=== PATIENT | female | born 1960 | race Caucasian/White ===

== ENCOUNTER 2021-02-08 19:01 | Emergency (ER) | payer OTHER, SELFPAY ==
[2021-02-08 19:30] LABS: #Eosinphils 0.1 thou/uL (0.0-0.7); #Lymphocytes 1.1 thou/uL (1.20-3.40); #Monocytes 0.8 thou/uL (0.11-0.59); #Neutrophils 7.4 thou/uL (1.40-6.50); %Basophils 0.5 % (0.0-1.0); %Eosinophils 1.6 % (0.0-10.0); %Lymphocytes 11.7 % (21.0-51.0); %Monocytes 8.6 % (0.0-10.0); %Neutrophils 77.7 % (42.0-75.0); Hemoglobin 11.5 g/dL (12.0-16.0); Mean Corpuscular Hemoglobin 31.1 pg (27.0-31.0); Mean Corpuscular Volume 91.4 fL (78.0-98.0); Mean Platelet Volume 8.1 fL (7.4-10.4); Platelet Count 200 thou/uL (130-400); RBC Distribution Width 11.5 % (11.5-14.5); Red Blood Cell (RBC) Count 3.72 mill/uL (4.20-5.40); White Blood Cell (WBC) Count 9.5 thou/uL (4.8-10.8)
[2021-02-08 19:44] LABS: ALT (SGPT) Less than 7 U/L (8-55); AST (SGOT) 13 U/L (5-34); Albumin 3.8 g/dL (3.4-4.8); Alkaline Phosphatase 51 U/L (40-110); Anion Gap 11 mmol/L (10-20); BUN (Urea Nitrogen) 14 mg/dL (9.8-20.1); Bilirubin, Total 0.3 mg/dL (0.2-1.2); CK (CPK) 279 U/L (29-168); Calc. Creatinine Clearance 0 mL/min (70-130); Calcium 8.7 mg/dL (7.8-10.44); Carbon Dioxide 27 mmol/L (23-31); Chloride 103 mmol/L (98-107); Globulin 1.9 g/dL (2.4-3.5); Glucose 93 mg/dL (80-115); Potassium 3.7 mmol/L (3.5-5.1); Protein, Total 5.7 g/dL (5.8-8.1); Sodium 137 mmol/L (136-145)
[2021-02-08 20:52] LABS: Bacteria/HPF None Seen HPF (None Seen); Bilirubin Negative (Negative); Blood, Urine Negative (Negative); Clarity Clear (Clear); Glucose, Urine (Dipstick) Normal (Negative); Ketone, Urine Trace mg/dL (Negative); Leukocyte 25 Leu/uL (Negative); Nitrite Negative (Negative); Protein, Urine (Dipstick) Negative (Neg-Trace); RBC/HPF 0-3 HPF (0-3); Specific Gravity, Urine 1.014 (1.002-1.036); Squamous Epithelial None Seen HPF (0-3); Urobilinogen Normal mg/dL (Less than 2)
== END 2021-02-08 21:47 | disposition home or self-care (01) ==
LOC: ERS 19:01
DX: S70.02XA Contusion of left hip, initial encounter (principal); E78.5 Hyperlipidemia, unspecified; E78.00 Pure hypercholesterolemia, unspecified; W01.0XXA Fall on same level from slipping, tripping and stumbling without subsequent striking against object, initial encounter
CPT/HCPCS: 36415; 70450; 80053; 81003; 81015; 82550; 83605; 84484; 85025; 87086; 93005

== ENCOUNTER 2022-03-11 18:20 | Inpatient (IN) | payer MEDICARE, SELFPAY ==
[2022-03-11 19:36] LABS: Bacteria/HPF 3+ HPF (None Seen); Bilirubin Negative (Negative); Blood, Urine 3+ (Negative); Clarity Extra Turbid (Clear); Glucose, Urine (Dipstick) Normal (Negative); Ketone, Urine Negative (Negative); Leukocyte 500 Leu/uL (Negative); Nitrite Negative (Negative); Protein, Urine (Dipstick) 100 mg/dL (Neg-Trace); Specific Gravity, Urine 1.014 (1.002-1.036); Squamous Epithelial None Seen HPF (0-3); Urobilinogen Normal mg/dL (Less than 2); WBC/HPF Greater than 50 HPF (0-3); pH, Urine 5.5 (5.0-9.0)
[2022-03-11 19:59] LABS: #Basophils 0.1 thou/uL (0.0-0.2); #Eosinphils 0.1 thou/uL (0.0-0.7); #Monocytes 0.7 thou/uL (0.11-0.59); #Neutrophils 8.6 thou/uL (1.40-6.50); %Basophils 0.6 % (0.0-1.0); %Eosinophils 0.6 % (0.0-10.0); %Lymphocytes 9.4 % (21.0-51.0); %Monocytes 6.9 % (0.0-10.0); %Neutrophils 82.5 % (42.0-75.0); Hemoglobin 12.1 g/dL (12.0-16.0); Mean Corpuscular Hemoglobin 29.5 pg (27.0-31.0); Mean Corpuscular Volume 89.3 fl (78.0-98.0); Mean Platelet Volume 8.8 fL (7.4-10.4); Platelet Count 196 10x3/uL (130-400); RBC Distribution Width 11.8 % (11.5-14.5); Red Blood Cell (RBC) Count 4.09 mill/uL (4.20-5.40); White Blood Cell (WBC) Count 10.4 10x3/uL (4.8-10.8)
[2022-03-11 20:21] LABS: ALT (SGPT) Less than 7 U/L (8-55); AST (SGOT) 9 U/L (5-34); Albumin 4.2 g/dL (3.4-4.8); Alkaline Phosphatase 49 U/L (40-110); Anion Gap 10 mmol/L (10-20); BUN (Urea Nitrogen) 17 mg/dL (9.8-20.1); Bilirubin, Total 0.4 mg/dL (0.2-1.2); Calc. Creatinine Clearance 0 mL/min (70-130); Carbon Dioxide 27 mmol/L (23-31); Chloride 103 mmol/L (98-107); Estimated GFR 98; Globulin 2.3 g/dL (2.4-3.5); Glucose 85 mg/dL (80-115); Potassium 3.9 mmol/L (3.5-5.1); Protein, Total 6.5 g/dL (5.8-8.1); Sodium 136 mmol/L (136-145)
[2022-03-11] MEDS ORDERED: cefTRIAXone\\ROCEPHIN 1 GM VIAL ONE (21:53)
[2022-03-11] MEDS ORDERED: HYDROcodone/Acetaminophen 5/325 mg Tablet PO PRN (22:46)
[2022-03-11] MEDS ORDERED: Ondansetron ODT 4 MG TAB PO PRN (22:46)
[2022-03-11] MEDS ORDERED: Acetaminophen 325 MG TAB PO PRN (22:46)
[2022-03-11] MEDS ORDERED: Ondansetron PF 4 MG/2 ML Vial IVP PRN (22:46)
[2022-03-11] MEDS ORDERED: Phenazopyridine HCl 100 MG TAB PO SCH (23:30)
[2022-03-12] VITALS: BMI 21.9
[2022-03-12] MEDS: Phenazopyridine HCl 100 MG TAB PO SCH ×4 (00:31→17:55)
[2022-03-12] MEDS ORDERED: Carbidopa/Levodopa 25-100 mg Tablet PO PRN (00:48)
[2022-03-12] MEDS: Baclofen 10 MG TAB PO SCH ×4 (06:07→23:35)
[2022-03-12] MEDS: valACYclovir 500 MG TAB PO SCH (08:39)
[2022-03-12] MEDS: Ezetimibe 10 MG TAB PO SCH (08:39)
[2022-03-12] MEDS: cefTRIAXone\\ROCEPHIN 2 GM in Sodium Chloride 0.9% 100 ML IVPB SCH (08:40)
[2022-03-12] MEDS: Simvastatin 10 MG TAB PO SCH (08:41)
[2022-03-12 08:55] LABS: #Eosinphils 0.1 thou/uL (0.0-0.7); #Monocytes 0.5 thou/uL (0.11-0.59); #Neutrophils 3.7 thou/uL (1.40-6.50); %Basophils 0.8 % (0.0-1.0); %Eosinophils 2.5 % (0.0-10.0); %Lymphocytes 19.2 % (21.0-51.0); %Monocytes 8.5 % (0.0-10.0); Hemoglobin 11.4 g/dL (12.0-16.0); Mean Corpuscular Hemoglobin 29.8 pg (27.0-31.0); Mean Corpuscular Volume 90.3 fl (78.0-98.0); Mean Platelet Volume 8.8 fL (7.4-10.4); Platelet Count 168 10x3/uL (130-400); RBC Distribution Width 11.8 % (11.5-14.5); Red Blood Cell (RBC) Count 3.84 mill/uL (4.20-5.40); White Blood Cell (WBC) Count 5.3 10x3/uL (4.8-10.8)
[2022-03-12] MEDS ORDERED: Rasagiline Mesylate 1 MG Tab PO SCH (09:00)
[2022-03-12 09:11] LABS: Anion Gap 10 mmol/L (10-20); BUN (Urea Nitrogen) 15 mg/dL (9.8-20.1); Calc. Creatinine Clearance 81 mL/min (70-130); Calcium 8.6 mg/dL (7.8-10.44); Carbon Dioxide 29 mmol/L (23-31); Chloride 103 mmol/L (98-107); Estimated GFR 99; Glucose 111 mg/dL (80-115); Potassium 3.5 mmol/L (3.5-5.1); Sodium 138 mmol/L (136-145)
[2022-03-13] MEDS: Baclofen 10 MG TAB PO SCH ×4 (05:08→23:33)
[2022-03-13 06:03] LABS: #Eosinphils 0.2 thou/uL (0.0-0.7); #Lymphocytes 1.2 thou/uL (1.20-3.40); #Monocytes 0.5 thou/uL (0.11-0.59); #Neutrophils 3.5 thou/uL (1.40-6.50); %Basophils 0.3 % (0.0-1.0); %Eosinophils 3.1 % (0.0-10.0); %Lymphocytes 23.1 % (21.0-51.0); %Monocytes 8.4 % (0.0-10.0); %Neutrophils 65.1 % (42.0-75.0); Hemoglobin 11.9 g/dL (12.0-16.0); Mean Corpuscular HGB CONC 33.5 g/dL (32.0-36.0); Mean Corpuscular Hemoglobin 30.2 pg (27.0-31.0); Mean Corpuscular Volume 90.4 fl (78.0-98.0); Platelet Count 158 10x3/uL (130-400); RBC Distribution Width 11.9 % (11.5-14.5); Red Blood Cell (RBC) Count 3.95 mill/uL (4.20-5.40); White Blood Cell (WBC) Count 5.4 10x3/uL (4.8-10.8)
[2022-03-13 06:26] LABS: Anion Gap 9 mmol/L (10-20); BUN (Urea Nitrogen) 17 mg/dL (9.8-20.1); Calc. Creatinine Clearance 89 mL/min (70-130); Carbon Dioxide 30 mmol/L (23-31); Chloride 104 mmol/L (98-107); Potassium 4.3 mmol/L (3.5-5.1); Sodium 139 mmol/L (136-145)
[2022-03-13 06:27] LABS: Calcium 8.9 mg/dL (7.8-10.44); Estimated GFR 101; Glucose 92 mg/dL (80-115)
[2022-03-13] MEDS: Phenazopyridine HCl 100 MG TAB PO SCH ×3 (08:25→18:12)
[2022-03-13] MEDS: Ezetimibe 10 MG TAB PO SCH (08:25)
[2022-03-13] MEDS: cefTRIAXone\\ROCEPHIN 2 GM in Sodium Chloride 0.9% 100 ML IVPB SCH (08:25)
[2022-03-13] MEDS: Simvastatin 10 MG TAB PO SCH (08:31)
[2022-03-13] MEDS: valACYclovir 500 MG TAB PO SCH (08:31)
[2022-03-13] MEDS ORDERED: Lorazepam 2 MG/ML VIAL SLOW IVP SCH (15:45)
[2022-03-14] MEDS: Baclofen 10 MG TAB PO SCH ×4 (05:34→23:28)
[2022-03-14 06:38] LABS: #Basophils 0.1 thou/uL (0.0-0.2); #Eosinphils 0.1 thou/uL (0.0-0.7); #Lymphocytes 1.2 thou/uL (1.20-3.40); #Monocytes 0.5 thou/uL (0.11-0.59); #Neutrophils 3.3 thou/uL (1.40-6.50); %Eosinophils 2.7 % (0.0-10.0); %Lymphocytes 22.5 % (21.0-51.0); %Monocytes 8.7 % (0.0-10.0); %Neutrophils 65.1 % (42.0-75.0); Mean Corpuscular Hemoglobin 29.8 pg (27.0-31.0); Mean Corpuscular Volume 90.4 fl (78.0-98.0); Mean Platelet Volume 8.9 fL (7.4-10.4); Platelet Count 179 10x3/uL (130-400); RBC Distribution Width 11.8 % (11.5-14.5); Red Blood Cell (RBC) Count 4.02 mill/uL (4.20-5.40); White Blood Cell (WBC) Count 5.1 10x3/uL (4.8-10.8)
[2022-03-14 07:04] LABS: Anion Gap 10 mmol/L (10-20); BUN (Urea Nitrogen) 18 mg/dL (9.8-20.1); Calc. Creatinine Clearance 85 mL/min (70-130); Carbon Dioxide 28 mmol/L (23-31); Chloride 105 mmol/L (98-107); Estimated GFR 100; Glucose 88 mg/dL (80-115); Iron 85 ug/dL (50-170); Iron Binding Capacity, Total 333 mcg/dL (265-497); Sodium 139 mmol/L (136-145)
[2022-03-14 07:07] LABS: Iron 86 ug/dL (50-170); Iron Binding Capacity, Total 328 mcg/dL (265-497)
[2022-03-14 07:13] LABS: Reticulocyte Count 1.4 % (0.5-1.5)
[2022-03-14] MEDS: Simvastatin 10 MG TAB PO SCH (08:06)
[2022-03-14] MEDS: Ezetimibe 10 MG TAB PO SCH (08:07)
[2022-03-14] MEDS: cefTRIAXone\\ROCEPHIN 2 GM in Sodium Chloride 0.9% 100 ML IVPB SCH (08:07)
[2022-03-14] MEDS: Phenazopyridine HCl 100 MG TAB PO SCH ×3 (08:07→17:07)
[2022-03-14] MEDS: valACYclovir 500 MG TAB PO SCH (08:08)
[2022-03-14] MEDS: Nitrofurantoin Monohyd/M-Cryst 100 MG CAP PO SCH (21:05)
[2022-03-15] MEDS: Baclofen 10 MG TAB PO SCH ×4 (05:48→23:36)
[2022-03-15 07:12] LABS: Anion Gap 9 mmol/L (10-20); BUN (Urea Nitrogen) 17 mg/dL (9.8-20.1); Calc. Creatinine Clearance 92 mL/min (70-130); Calcium 8.7 mg/dL (7.8-10.44); Carbon Dioxide 28 mmol/L (23-31); Chloride 105 mmol/L (98-107); Estimated GFR 102; Glucose 83 mg/dL (80-115); Potassium 4.1 mmol/L (3.5-5.1); Sodium 138 mmol/L (136-145)
[2022-03-15 07:16] LABS: #Basophils 0.1 thou/uL (0.0-0.2); #Eosinphils 0.1 thou/uL (0.0-0.7); #Lymphocytes 1.3 thou/uL (1.20-3.40); #Monocytes 0.5 thou/uL (0.11-0.59); #Neutrophils 3.7 thou/uL (1.40-6.50); %Eosinophils 2.3 % (0.0-10.0); %Lymphocytes 23.3 % (21.0-51.0); %Monocytes 9.4 % (0.0-10.0); Hemoglobin 11.8 g/dL (12.0-16.0); Mean Corpuscular HGB CONC 33.9 g/dL (32.0-36.0); Mean Corpuscular Hemoglobin 30.4 pg (27.0-31.0); Mean Corpuscular Volume 89.7 fl (78.0-98.0); Mean Platelet Volume 9.3 fL (7.4-10.4); Platelet Count 161 10x3/uL (130-400); Red Blood Cell (RBC) Count 3.89 mill/uL (4.20-5.40); White Blood Cell (WBC) Count 5.7 10x3/uL (4.8-10.8)
[2022-03-15] MEDS: Nitrofurantoin Monohyd/M-Cryst 100 MG CAP PO SCH ×2 (08:17→20:10)
[2022-03-15] MEDS: Ezetimibe 10 MG TAB PO SCH (08:18)
[2022-03-15] MEDS: Phenazopyridine HCl 100 MG TAB PO SCH ×3 (08:18→17:24)
[2022-03-15] MEDS: valACYclovir 500 MG TAB PO SCH (08:18)
[2022-03-15] MEDS: Simvastatin 10 MG TAB PO SCH (08:18)
[2022-03-16] MEDS: Baclofen 10 MG TAB PO SCH ×3 (06:28→17:32)
[2022-03-16 06:45] LABS: #Eosinphils 0.2 thou/uL (0.0-0.7); #Lymphocytes 1.3 thou/uL (1.20-3.40); #Monocytes 0.7 thou/uL (0.11-0.59); #Neutrophils 3.7 thou/uL (1.40-6.50); %Basophils 0.7 % (0.0-1.0); %Eosinophils 3.1 % (0.0-10.0); %Lymphocytes 22.4 % (21.0-51.0); %Monocytes 11.8 % (0.0-10.0); %Neutrophils 61.9 % (42.0-75.0); Hemoglobin 12.2 g/dL (12.0-16.0); Mean Corpuscular HGB CONC 34.2 g/dL (32.0-36.0); Mean Corpuscular Hemoglobin 30.5 pg (27.0-31.0); Mean Corpuscular Volume 89.1 fl (78.0-98.0); Mean Platelet Volume 9.3 fL (7.4-10.4); Platelet Count 178 10x3/uL (130-400); RBC Distribution Width 11.9 % (11.5-14.5); Red Blood Cell (RBC) Count 4.02 mill/uL (4.20-5.40); White Blood Cell (WBC) Count 5.9 10x3/uL (4.8-10.8)
[2022-03-16 07:11] LABS: Anion Gap 9 mmol/L (10-20); BUN (Urea Nitrogen) 16 mg/dL (9.8-20.1); Calc. Creatinine Clearance 83 mL/min (70-130); Carbon Dioxide 30 mmol/L (23-31); Chloride 104 mmol/L (98-107); Estimated GFR 100; Glucose 87 mg/dL (80-115); Potassium 4.2 mmol/L (3.5-5.1); Sodium 139 mmol/L (136-145)
[2022-03-16] MEDS: Nitrofurantoin Monohyd/M-Cryst 100 MG CAP PO SCH ×2 (08:47→21:33)
[2022-03-16] MEDS: Phenazopyridine HCl 100 MG TAB PO SCH ×3 (08:47→17:32)
[2022-03-16] MEDS: Ezetimibe 10 MG TAB PO SCH (08:47)
[2022-03-16] MEDS: Simvastatin 10 MG TAB PO SCH (08:47)
[2022-03-16] MEDS: valACYclovir 500 MG TAB PO SCH (08:48)
[2022-03-17] MEDS: Baclofen 10 MG TAB PO SCH ×3 (00:01→12:17)
[2022-03-17 07:05] LABS: #Basophils 0.1 thou/uL (0.0-0.2); #Eosinphils 0.1 thou/uL (0.0-0.7); #Monocytes 0.6 thou/uL (0.11-0.59); #Neutrophils 2.8 thou/uL (1.40-6.50); %Basophils 1.3 % (0.0-1.0); %Lymphocytes 21.6 % (21.0-51.0); %Monocytes 12.3 % (0.0-10.0); %Neutrophils 61.8 % (42.0-75.0); Hemoglobin 11.8 g/dL (12.0-16.0); Mean Corpuscular HGB CONC 33.6 g/dL (32.0-36.0); Mean Corpuscular Hemoglobin 30.1 pg (27.0-31.0); Mean Corpuscular Volume 89.5 fl (78.0-98.0); Mean Platelet Volume 8.6 fL (7.4-10.4); Platelet Count 176 10x3/uL (130-400); RBC Distribution Width 11.9 % (11.5-14.5); Red Blood Cell (RBC) Count 3.91 mill/uL (4.20-5.40); White Blood Cell (WBC) Count 4.5 10x3/uL (4.8-10.8)
[2022-03-17 07:25] LABS: Anion Gap 9 mmol/L (10-20); BUN (Urea Nitrogen) 12 mg/dL (9.8-20.1); Calc. Creatinine Clearance 92 mL/min (70-130); Carbon Dioxide 30 mmol/L (23-31); Chloride 103 mmol/L (98-107); Estimated GFR 102; Glucose 91 mg/dL (80-115); Potassium 4.3 mmol/L (3.5-5.1); Sodium 138 mmol/L (136-145)
[2022-03-17] MEDS: Simvastatin 10 MG TAB PO SCH (08:32)
[2022-03-17] MEDS: Phenazopyridine HCl 100 MG TAB PO SCH ×2 (08:32→12:17)
[2022-03-17] MEDS: valACYclovir 500 MG TAB PO SCH (08:33)
[2022-03-17] MEDS: Nitrofurantoin Monohyd/M-Cryst 100 MG CAP PO SCH (08:33)
[2022-03-17] MEDS: Ezetimibe 10 MG TAB PO SCH (08:33)
[2022-03-17 14:02] VITALS: BP 132/81; TEMP 98.1
[2022-03-17] MEDS ORDERED: Rasagiline Mesylate 1 MG Tab PO SCH (14:15)
== END 2022-03-17 15:00 | disposition home health service (06) | DRG 57 ==
LOC: ERS 18:20 → EEVIPCON 18:20 → T4-A 22:30 → OBSVTOIN 03-12 12:20 → UNDODISIN 03-17 14:03
PROVIDERS: ADMIT Family Medicine; ATTEND Family Medicine
DX: G20 Parkinson's disease (principal); G03.2 Benign recurrent meningitis [Mollaret]; N30.01 Acute cystitis with hematuria; Z16.12 Extended spectrum beta lactamase (ESBL) resistance; G24.01 Drug induced subacute dyskinesia; Z20.822 Contact with and (suspected) exposure to COVID-19; R40.4 Transient alteration of awareness; D64.9 Anemia, unspecified; B96.20 Unspecified Escherichia coli [E. coli] as the cause of diseases classified elsewhere; E78.5 Hyperlipidemia, unspecified; G43.909 Migraine, unspecified, not intractable, without status migrainosus; I10 Essential (primary) hypertension; Z88.5 Allergy status to narcotic agent; Z88.8 Allergy status to other drugs, medicaments and biological substances; Z88.1 Allergy status to other antibiotic agents; Z91.041 Radiographic dye allergy status; Z79.899 Other long term (current) drug therapy; Z98.1 Arthrodesis status; Z90.710 Acquired absence of both cervix and uterus; Z83.3 Family history of diabetes mellitus; Z82.49 Family history of ischemic heart disease and other diseases of the circulatory system; Z95.1 Presence of aortocoronary bypass graft
CPT/HCPCS: 36415; 80048; 80053; 81003; 81015; 82728; 83540; 83550; 85025; 85046; 87077; 87086; 87186; 95712; 95819; 95957; 96374; 96376; G0378; J0696; J2060; J3490; U0003; U0005

== ENCOUNTER 2022-09-07 21:25 | Emergency (ER) | payer MEDICARE ==
[2022-09-08 00:20] LABS: #Monocytes 0.7 thou/uL (0.11-0.59); #Neutrophils 5.5 thou/uL (1.40-6.50); %Basophils 0.6 % (0.0-1.0); %Eosinophils 0.4 % (0.0-10.0); %Lymphocytes 11.6 % (21.0-51.0); %Monocytes 9.3 % (0.0-10.0); %Neutrophils 77.8 % (42.0-75.0); Hemoglobin 11.2 g/dL (12.0-16.0); Mean Corpuscular Hemoglobin 29.1 pg (27.0-31.0); Mean Corpuscular Volume 90.9 fl (78.0-98.0); Mean Platelet Volume 10.7 fL (7.4-10.4); Platelet Count 194 10x3/uL (130-400); Red Blood Cell (RBC) Count 3.85 mill/uL (4.20-5.40)
[2022-09-08] MEDS ORDERED: diphenhydrAMINE 50 MG/ML VIAL ONE (00:28)
[2022-09-08 00:46] LABS: ALT (SGPT) Less than 7 U/L (8-55); AST (SGOT) 11 U/L (5-34); Albumin 4.2 g/dL (3.4-4.8); Alkaline Phosphatase 54 U/L (40-110); Anion Gap 10 mmol/L (10-20); BUN (Urea Nitrogen) 20 mg/dL (9.8-20.1); Bilirubin, Total 0.3 mg/dL (0.2-1.2); CK (CPK) 287 U/L (29-168); Calc. Creatinine Clearance 0 mL/min (70-130); Carbon Dioxide 28 mmol/L (23-31); Chloride 106 mmol/L (98-107); Estimated GFR 99; Globulin 2.3 g/dL (2.4-3.5); Glucose 92 mg/dL (80-115); Potassium 3.8 mmol/L (3.5-5.1); Protein, Total 6.5 g/dL (5.8-8.1); Sodium 140 mmol/L (136-145)
[2022-09-08 02:48] LABS: Bacteria/HPF None Seen HPF (None Seen); Bilirubin Negative (Negative); Blood, Urine Negative (Negative); CAUTI Indications for Culture Dysuria,urgency,freq; Clarity Clear (Clear); Glucose, Urine (Dipstick) Normal (Negative); Ketone, Urine Negative (Negative); Leukocyte Negative Leu/uL (Negative); Nitrite Negative (Negative); Protein, Urine (Dipstick) Negative (Neg-Trace); RBC/HPF 0-3 HPF (0-3); Specific Gravity, Urine 1.006 (1.002-1.036); Squamous Epithelial None Seen HPF (0-3); Urobilinogen Normal mg/dL (Less than 2); WBC/HPF 0-3 HPF (0-3)
[2022-09-08 02:50] LABS: Urine Culture Reflex No No
== END 2022-09-08 03:35 | disposition home or self-care (01) ==
LOC: ERS 21:25
DX: G20 Parkinson's disease (principal); K76.89 Other specified diseases of liver; E78.00 Pure hypercholesterolemia, unspecified
CPT/HCPCS: 36415; 70450; 74176; 80053; 81001; 82550; 85025; J1200

== ENCOUNTER 2022-10-03 14:08 | Inpatient (IN) | payer MEDICARE ==
[2022-10-03 15:55] LABS: Bilirubin Negative (Negative); Blood, Urine Trace (Negative); CAUTI Indications for Culture Pelvic or flank pain; Clarity Clear (Clear); Glucose, Urine (Dipstick) Normal (Negative); Ketone, Urine Negative (Negative); Leukocyte 500 Leu/uL (Negative); Nitrite Negative (Negative); Protein, Urine (Dipstick) Negative (Neg-Trace); RBC/HPF 0-3 HPF (0-3); Specific Gravity, Urine 1.017 (1.002-1.036); Squamous Epithelial 0-3 HPF (0-3); Urobilinogen Normal mg/dL (Less than 2)
[2022-10-03 15:56] LABS: Bacteria/HPF 1+ HPF (None Seen)
[2022-10-03 15:57] LABS: Urine Culture Reflex Yes Yes
[2022-10-03] MEDS ORDERED: Morphine 2 MG/ML VIAL ONE (16:18)
[2022-10-03] MEDS ORDERED: Morphine 4 MG/ML VIAL ONE (16:19)
[2022-10-03 17:05] LABS: #Monocytes 0.9 thou/uL (0.11-0.59); #Neutrophils 8.2 thou/uL (1.40-6.50); %Basophils 0.4 % (0.0-1.0); %Eosinophils 0.3 % (0.0-10.0); %Lymphocytes 5.9 % (21.0-51.0); %Monocytes 9.1 % (0.0-10.0); Hemoglobin 11.3 g/dL (12.0-16.0); Mean Corpuscular HGB CONC 32.3 g/dL (32.0-36.0); Mean Corpuscular Hemoglobin 29.7 pg (27.0-31.0); Mean Corpuscular Volume 92.1 fl (78.0-98.0); Mean Platelet Volume 10.6 fL (7.4-10.4); Platelet Count 178 10x3/uL (130-400); White Blood Cell (WBC) Count 9.8 10x3/uL (4.8-10.8)
[2022-10-03 17:07] LABS: Actual Bicarbonate (HCO3v) 23.9 mEq/L (22-28); Base Excess -1.6 mEq/L (-2.0 to +3.0); Chloride (VBG) 105 mmol/L (98-106); Hematocrit-VBG 37 % (36.0-47.0); Hemoglobin (Hb) 12.6 g/dL (11.7-16.0); Potassium (VBG) 3.89 mmol/L (3.70-5.30); Sodium 138.5 mmol/L (133-146)
[2022-10-03 17:29] LABS: ALT (SGPT) Less than 7 U/L (8-55); AST (SGOT) 8 U/L (5-34); Albumin 4.1 g/dL (3.4-4.8); Alkaline Phosphatase 57 U/L (40-110); Anion Gap 10 mmol/L (10-20); BUN (Urea Nitrogen) 25 mg/dL (9.8-20.1); Bilirubin, Total 0.3 mg/dL (0.2-1.2); Calc. Creatinine Clearance 0 mL/min (70-130); Calcium 8.6 mg/dL (7.8-10.44); Carbon Dioxide 25 mmol/L (23-31); Chloride 106 mmol/L (98-107); Estimated GFR 101; Globulin 2.2 g/dL (2.4-3.5); Glucose 100 mg/dL (80-115); Potassium 3.8 mmol/L (3.5-5.1); Protein, Total 6.3 g/dL (5.8-8.1); Sodium 137 mmol/L (136-145)
[2022-10-03 17:31] LABS: Troponin I Less than 0.010 ng/mL (< 0.028)
[2022-10-03] MEDS ORDERED: Gentamicin 300 MG in Sodium Chloride 0.9% 100 ML IVPB SCH (17:45)
[2022-10-03 18:16] LABS: Magnesium 1.8 mg/dL (1.6-2.6); Phosphorus 4.1 mg/dL (2.3-4.7)
[2022-10-03] MEDS ORDERED: Acetaminophen 325 MG TAB PO PRN (18:56)
[2022-10-03] MEDS ORDERED: hydrALAZINE 20 MG/ML VIAL SLOW IVP PRN (19:12)
[2022-10-03] MEDS ORDERED: Carbidopa/Levodopa 25-100 mg Tablet PO PRN (19:17)
[2022-10-03 19:32] LABS: Free T4 (Free Thyroxine) 1.05 ng/dL (0.70-1.48)
[2022-10-03] MEDS ORDERED: Meropenem 1 GM in Sodium Chloride 0.9% 100 ML IVPB SCH (20:00)
[2022-10-03] MEDS: clonazePAM 0.5 MG TAB PO SCH (20:36)
[2022-10-03] MEDS: Baclofen 10 MG TAB PO SCH (20:36)
[2022-10-03] MEDS: Acyclovir Sodium 570 MG in Sodium Chloride 0.9% 100 ML IVPB SCH (21:53)
[2022-10-03] MEDS ORDERED: traMADol HCl 50 MG TAB PO SCH (22:00)
[2022-10-03] MEDS ORDERED: Morphine 2 MG/ML VIAL SLOW IVP SCH (22:15)
[2022-10-03 22:48] VITALS: BMI 22.1
[2022-10-03] MEDS ORDERED: Lorazepam 2 MG/ML VIAL SLOW IVP SCH (23:00)
[2022-10-03] MEDS: Carbidopa/Levodopa 25-100 mg Tablet PO PRN (23:49)
[2022-10-03] MEDS ORDERED: Baclofen 10 MG TAB PO SCH (23:59)
[2022-10-04] MEDS: Carbidopa/Levodopa 25-100 mg Tablet PO PRN ×5 (00:20→22:46)
[2022-10-04 01:50] LABS: Amphetamine Not Detected (NotDetected); Barbiturates Screen Detected (NotDetected); Benzodiazepine Screen Not Detected (NotDetected); Cocaine Metabolite Screen Not Detected (NotDetected); Methadone Not Detected (NotDetected); Methamphetamine Not Detected (NotDetected); Opiate Screen Detected (NotDetected); Oxycodone Screen Not Detected (NotDetected); Phencyclidine (PCP) Not Detected (NotDetected); THC/Cannabinoid Screen Not Detected (NotDetected); Tricyclic Screen Not Detected (NotDetected)
[2022-10-04] MEDS ORDERED: Morphine 2 MG/ML VIAL SLOW IVP SCH (02:15)
[2022-10-04 04:30] LABS: #Monocytes 0.9 thou/uL (0.11-0.59); %Basophils 0.4 % (0.0-1.0); %Eosinophils 0.5 % (0.0-10.0); %Lymphocytes 8.1 % (21.0-51.0); %Monocytes 11.6 % (0.0-10.0); %Neutrophils 79.1 % (42.0-75.0); Hematocrit 37.8 % (36.0-47.0); Hemoglobin 11.9 g/dL (12.0-16.0); Mean Corpuscular HGB CONC 31.5 g/dL (32.0-36.0); Mean Corpuscular Hemoglobin 29.6 pg (27.0-31.0); Mean Platelet Volume 10.6 fL (7.4-10.4); Platelet Count 156 10x3/uL (130-400); Red Blood Cell (RBC) Count 4.02 mill/uL (4.20-5.40); White Blood Cell (WBC) Count 7.6 10x3/uL (4.8-10.8)
[2022-10-04 05:52] LABS: ALT (SGPT) Less than 7 U/L (8-55); AST (SGOT) 10 U/L (5-34); Alkaline Phosphatase 57 U/L (40-110); Anion Gap 11 mmol/L (10-20); BUN (Urea Nitrogen) 15 mg/dL (9.8-20.1); Bilirubin, Total 0.4 mg/dL (0.2-1.2); Calc. Creatinine Clearance 91 mL/min (70-130); Carbon Dioxide 24 mmol/L (23-31); Cardiac Risk 3.4 (Less than 4.5); Chloride 108 mmol/L (98-107); Cholesterol 217 mg/dl (< 200 Desired); Estimated GFR 101; Globulin 2.2 g/dL (2.4-3.5); Glucose 91 mg/dL (80-115); HDL Cholesterol 63 mg/dL (>60 Neg Risk); LDL Cholesterol, Calculated 136 mg/dL; Potassium 3.5 mmol/L (3.5-5.1); Protein, Total 6.2 g/dL (5.8-8.1); Sodium 139 mmol/L (136-145); Triglycerides 91 mg/dL (Less than 150)
[2022-10-04] MEDS: Acyclovir Sodium 570 MG in Sodium Chloride 0.9% 100 ML IVPB SCH ×2 (05:52→12:54)
[2022-10-04] MEDS: Clopidogrel Bisulfate 75 MG TAB PO SCH (07:48)
[2022-10-04] MEDS: Meropenem 1 GM in Sodium Chloride 0.9% 100 ML IVPB SCH ×2 (08:15→15:10)
[2022-10-04] MEDS: Baclofen 10 MG TAB PO SCH ×2 (08:21→20:56)
[2022-10-04] MEDS: Atorvastatin Calcium 20 MG TAB PO SCH (08:22)
[2022-10-04] MEDS: Ezetimibe 10 MG TAB PO SCH (08:22)
[2022-10-04] MEDS: Saccharomyces boulardii 250 MG CAP PO SCH (08:22)
[2022-10-04] MEDS ORDERED: traMADol HCl 50 MG TAB PO PRN (08:32)
[2022-10-04] MEDS ORDERED: Lorazepam 2 MG/ML VIAL SLOW IVP SCH (08:45)
[2022-10-04] MEDS ORDERED: valACYclovir 500 MG TAB PO SCH (09:00)
[2022-10-04] MEDS ORDERED: Non-Formulary Item 1 EACH (Rasagiline Mesylate 1 MG Tab) PO SCH (09:00)
[2022-10-04 11:07] LABS: CSF, Glucose 67 mg/dl (40-70); CSF, Protein 31 mg/dL (15-40)
[2022-10-04 11:22] LABS: CSF Source CSF; Clarity Clear (Clear); Tube # 4
[2022-10-04] MEDS: clonazePAM 0.5 MG TAB PO SCH (20:56)
[2022-10-05] MEDS: Carbidopa/Levodopa 25-100 mg Tablet PO PRN ×6 (00:48→13:00)
[2022-10-05] MEDS: Meropenem 1 GM in Sodium Chloride 0.9% 100 ML IVPB SCH ×2 (00:48→08:58)
[2022-10-05] MEDS: Baclofen 10 MG TAB PO SCH (08:55)
[2022-10-05] MEDS: Atorvastatin Calcium 20 MG TAB PO SCH (08:57)
[2022-10-05] MEDS: Clopidogrel Bisulfate 75 MG TAB PO SCH (08:57)
[2022-10-05] MEDS: Saccharomyces boulardii 250 MG CAP PO SCH (08:57)
[2022-10-05] MEDS ORDERED: Ezetimibe 10 MG TAB PO SCH (09:45)
[2022-10-05] MEDS: Ezetimibe 10 MG TAB PO SCH (09:58)
[2022-10-05 12:28] VITALS: BP 121/68; TEMP 97.8
[2022-10-06] MEDS ORDERED: Ezetimibe 10 MG TAB PO SCH (09:00)
== END 2022-10-05 13:41 | disposition left against medical advice (07) | DRG 56 ==
LOC: ERS 14:08 → ERHOLD 17:45 → 2SW 19:59 → OBSVTOIN 10-04 15:55
PROVIDERS: ADMIT Internal Medicine; ATTEND Family Medicine
PROC: 009U3ZX Drainage of Spinal Canal, Percutaneous Approach, Diagnostic (ICD-10-PCS; principal; 2022-10-04)
PROC: B01B1ZZ Fluoroscopy of Spinal Cord using Low Osmolar Contrast (ICD-10-PCS; 2022-10-04)
DX: G20 Parkinson's disease (principal); G93.41 Metabolic encephalopathy; N39.0 Urinary tract infection, site not specified; G43.909 Migraine, unspecified, not intractable, without status migrainosus; E78.00 Pure hypercholesterolemia, unspecified; D64.9 Anemia, unspecified; G24.01 Drug induced subacute dyskinesia; E78.5 Hyperlipidemia, unspecified; Z88.1 Allergy status to other antibiotic agents; Z88.8 Allergy status to other drugs, medicaments and biological substances; Z90.710 Acquired absence of both cervix and uterus; Z98.890 Other specified postprocedural states; Z88.5 Allergy status to narcotic agent; Z79.899 Other long term (current) drug therapy
CPT/HCPCS: 36415; 62270; 70450; 70544; 70547; 70551; 72125; 80053; 80061; 80306; 81001; 82805; 82945; 83605; 83735; 84100; 84146; 84157; 84439; 84443; 84481; 84484; 85025; 87040; 87070; 87077; 87086; 87186; 87205; 87255; 87498; 89051; 93005; 96366; 96367; 96376; G0378; J0133; J1580; J2060; J2185; J2270; J2272; J3490

== ENCOUNTER 2024-03-20 08:52 | Inpatient (IN) | payer MEDICARE ==
[2024-03-20] MEDS ORDERED: Lorazepam 2 MG/ML VIAL ONE (09:32)
[2024-03-20 10:01] LABS: Actual Bicarbonate (HCO3v) 23.5 mEq/L (22-28); Analyzer IN Cardio ER; Base Excess -0.8 mEq/L (-2.0 to +3.0); Calcium, Ionized (venous) 1.15 mmol/L (1.16-1.32); Chloride (VBG) 110 mmol/L (98-106); Hematocrit-VBG 36 % (36.0-47.0); Hemoglobin (Hb) 12.4 g/dL (11.7-16.0); Potassium (VBG) 4.22 mmol/L (3.70-5.30); Sodium 146 mmol/L (133-146); pH (venous) 7.411 (7.32-7.43)
[2024-03-20 10:12] LABS: #Basophils 0.05 10x3/uL (0.0-0.2); #Eosinophils Less than 0.03 10x3/uL (0.0-0.7); %Basophils 0.2 % (0.0-1.0); %Lymphocytes 2.4 % (21.0-51.0); %Monocytes 4.1 % (0.0-10.0); %Neutrophils 92.8 % (42.0-75.0); Hematocrit 34.2 % (36.0-47.0); Hemoglobin 11.3 g/dL (12.0-16.0); Mean Corpuscular Hemoglobin 28.7 pg (27.0-31.0); Mean Corpuscular Volume 86.8 fL (78.0-98.0); Mean Platelet Volume 10.9 fL (7.4-10.4); Platelet Count 306 10x3/uL (130-400); RBC Distribution Width 14.2 % (11.5-14.5); Red Blood Cell (RBC) Count 3.94 mill/uL (4.20-5.40)
[2024-03-20] MEDS ORDERED: Diazepam 10 MG/2 ML SYRINGE ONE (10:18)
[2024-03-20 10:28] LABS: ALT (SGPT) Less than 7 U/L (Less than 34); AST (SGOT) 31 U/L (11-34); Acetaminophen Less than 10 mcg/mL (Less than 10); Albumin 3.9 g/dL (3.1-4.5); Alcohol Less than 10.0 mg/dL (Less than 10); Alkaline Phosphatase 57 U/L (40-110); Anion Gap 16 mmol/L (10-20); BUN (Urea Nitrogen) 28 mg/dL (9.8-20.1); Bilirubin, Total 0.5 mg/dL (0.3-1.2); Calc. Creatinine Clearance 0 mL/min (70-130); Calcium 9.2 mg/dL (7.8-10.44); Carbon Dioxide 22 mmol/L (23-31); Chloride 113 mmol/L (98-107); Estimated GFR 102; Globulin 2.6 g/dL (2.4-3.5); Glucose 95 mg/dL (80-115); Magnesium 2.2 mg/dL (1.6-2.6); Potassium 4.3 mmol/L (3.5-5.1); Protein, Total 6.5 g/dL (5.8-8.1); Salicylate Less than 8.0 mg/dL (Less than 8.0); Sodium 147 mmol/L (136-145)
[2024-03-20 10:53] LABS: Amphetamine Not Detected (NotDetected); Barbiturates Screen Not Detected (NotDetected); Benzodiazepine Screen Not Detected (NotDetected); Cocaine Metabolite Screen Not Detected (NotDetected); Methadone Not Detected (NotDetected); Methamphetamine Not Detected (NotDetected); Opiate Screen Not Detected (NotDetected); Oxycodone Screen Not Detected (NotDetected); Phencyclidine (PCP) Not Detected (NotDetected); THC/Cannabinoid Screen Not Detected (NotDetected); Tricyclic Screen Not Detected (NotDetected)
[2024-03-20 10:54] LABS: Troponin I Less than 0.010 ng/mL (< 0.028)
[2024-03-20 11:10] LABS: Bacteria/HPF None Seen HPF (None Seen); Bilirubin Negative (Negative); Blood, Urine 1+ (Negative); CAUTI Indications for Culture Dysuria,urgency,freq; Glucose, Urine (Dipstick) Normal (Negative); Ketone, Urine 10 mg/dL (Negative); Leukocyte 500 Leu/uL (Negative); Nitrite Negative (Negative); Protein, Urine (Dipstick) 20 mg/dL (Neg-Trace); RBC/HPF 21-50 HPF (0-3); Specific Gravity, Urine 1.034 (1.002-1.036); Squamous Epithelial 0-3 HPF (0-3); Urobilinogen Normal mg/dL (Less than 2); WBC/HPF 21-50 HPF (0-3); pH, Urine 5.5 (5.0-9.0)
[2024-03-20 11:18] LABS: Clarity Slightly Cloudy (Clear)
[2024-03-20 11:19] LABS: Transitional Epithelial 0-3 HPF (None Seen); Urine Culture Reflex Yes Yes
[2024-03-20] MEDS ORDERED: cefTRIAXone (ROCEPHIN) 1 GM VIAL ONE (12:10)
[2024-03-20] MEDS ORDERED: Sodium Chloride 0.9% 100 ML ONE (12:10)
[2024-03-20] MEDS ORDERED: Acetaminophen 650 MG Suppository PR PRN (12:17)
[2024-03-20] MEDS ORDERED: Bisacodyl 5 MG TAB PO PRN (12:17)
[2024-03-20] MEDS ORDERED: Ondansetron ODT 4 MG TAB PO PRN (12:17)
[2024-03-20] MEDS ORDERED: Senokot S 8.6-50 MG TAB PO PRN (12:17)
[2024-03-20] MEDS ORDERED: Ondansetron PF 4 MG/2 ML Vial IVP PRN (12:17)
[2024-03-20] MEDS ORDERED: Carbidopa/Levodopa 25-100 mg Tablet PO PRN (12:19)
[2024-03-20] MEDS ORDERED: Meropenem 2 GM in Sodium Chloride 0.9% 100 ML IVPB SCH (14:00)
[2024-03-20] MEDS: Carbidopa/Levodopa 25-100 mg Tablet PO SCH (15:44)
[2024-03-20] MEDS: Lactated Ringer's 1,000 ML IV SCH (15:45)
[2024-03-20 16:04] VITALS: BMI 20.7
[2024-03-20] MEDS: Meropenem 1 GM in Sodium Chloride 0.9% 100 ML IVPB SCH (17:07)
[2024-03-21] MEDS: Meropenem 1 GM in Sodium Chloride 0.9% 100 ML IVPB SCH (01:44)
[2024-03-21] MEDS: Sodium Chloride 0.9% 100 ML ONE (04:34)
[2024-03-21 05:54] LABS: #Basophils 0.07 10x3/uL (0.0-0.2); %Basophils 0.5 % (0.0-1.0); %Eosinophils 0.2 % (0.0-10.0); %Lymphocytes 8.9 % (21.0-51.0); %Monocytes 6.5 % (0.0-10.0); %Neutrophils 83.6 % (42.0-75.0); Hematocrit 34.8 % (36.0-47.0); Hemoglobin 11.2 g/dL (12.0-16.0); Mean Corpuscular HGB CONC 32.2 g/dL (32.0-36.0); Mean Corpuscular Hemoglobin 28.6 pg (27.0-31.0); Mean Corpuscular Volume 88.8 fL (78.0-98.0); Mean Platelet Volume 10.5 fL (7.4-10.4); Platelet Count 323 10x3/uL (130-400); RBC Distribution Width 14.3 % (11.5-14.5); Red Blood Cell (RBC) Count 3.92 mill/uL (4.20-5.40)
[2024-03-21 06:29] LABS: Anion Gap 13 mmol/L (10-20); BUN (Urea Nitrogen) 19 mg/dL (9.8-20.1); Calc. Creatinine Clearance 91 mL/min (70-130); Calcium 8.6 mg/dL (7.8-10.44); Carbon Dioxide 23 mmol/L (23-31); Chloride 112 mmol/L (98-107); Estimated GFR 103; Glucose 94 mg/dL (80-115); Potassium 3.4 mmol/L (3.5-5.1); Sodium 145 mmol/L (136-145)
[2024-03-21 10:24] VITALS: BMI 20.7
[2024-03-21] MEDS: Lactated Ringer's 1,000 ML IV SCH (12:19)
[2024-03-21] MEDS: CARBIDOPA PO SCH (17:27)
[2024-03-21] MEDS: LEVODOPA PO SCH (17:27)
[2024-03-22 05:57] LABS: #Basophils 0.05 10x3/uL (0.0-0.2); %Basophils 0.5 % (0.0-1.0); %Eosinophils 0.6 % (0.0-10.0); %Lymphocytes 7.1 % (21.0-51.0); %Monocytes 6.5 % (0.0-10.0); Hematocrit 33.5 % (36.0-47.0); Mean Corpuscular HGB CONC 32.8 g/dL (32.0-36.0); Mean Corpuscular Hemoglobin 28.9 pg (27.0-31.0); Mean Corpuscular Volume 88.2 fL (78.0-98.0); Mean Platelet Volume 10.7 fL (7.4-10.4); Platelet Count 277 10x3/uL (130-400); RBC Distribution Width 14.3 % (11.5-14.5)
[2024-03-22 06:29] LABS: Anion Gap 11 mmol/L (10-20); BUN (Urea Nitrogen) 15 mg/dL (9.8-20.1); Calc. Creatinine Clearance 100 mL/min (70-130); Calcium 8.3 mg/dL (7.8-10.44); Carbon Dioxide 26 mmol/L (23-31); Chloride 107 mmol/L (98-107); Estimated GFR 105; Glucose 102 mg/dL (80-115); Potassium 3.4 mmol/L (3.5-5.1); Sodium 141 mmol/L (136-145)
[2024-03-22] MEDS: Potassium Bicarbonate/Cit Ac 20 MEQ TAB PO SCH (08:59)
[2024-03-22] MEDS: RYTARY PO SCH ×2 (13:51)
[2024-03-22] MEDS: Acetaminophen 325 MG TAB PO PRN (17:30)
[2024-03-22] MEDS: Melatonin 3 MG TAB PO PRN (23:22)
[2024-03-23] MEDS: Baclofen 10 MG TAB PO SCH (00:40)
[2024-03-23] MEDS: traMADol HCl 50 MG TAB PO SCH (04:40)
[2024-03-23] MEDS: LevoFLOXacin 750 MG TAB PO SCH (04:52)
[2024-03-23 05:27] LABS: #Basophils 0.06 10x3/uL (0.0-0.2); %Basophils 0.4 % (0.0-1.0); %Lymphocytes 7.3 % (21.0-51.0); %Neutrophils 84.8 % (42.0-75.0); Hematocrit 36.4 % (36.0-47.0); Hemoglobin 11.7 g/dL (12.0-16.0); Mean Corpuscular HGB CONC 32.1 g/dL (32.0-36.0); Mean Corpuscular Hemoglobin 28.5 pg (27.0-31.0); Mean Corpuscular Volume 88.6 fL (78.0-98.0); Mean Platelet Volume 10.3 fL (7.4-10.4); Platelet Count 272 10x3/uL (130-400); RBC Distribution Width 14.2 % (11.5-14.5); Red Blood Cell (RBC) Count 4.11 mill/uL (4.20-5.40)
[2024-03-23 05:53] LABS: Anion Gap 12 mmol/L (10-20); BUN (Urea Nitrogen) 18 mg/dL (9.8-20.1); Calc. Creatinine Clearance 100 mL/min (70-130); Calcium 8.6 mg/dL (7.8-10.44); Carbon Dioxide 26 mmol/L (23-31); Chloride 106 mmol/L (98-107); Estimated GFR 105; Glucose 110 mg/dL (80-115); Potassium 3.9 mmol/L (3.5-5.1); Sodium 140 mmol/L (136-145)
[2024-03-23] MEDS: valACYclovir 500 MG TAB PO SCH (08:17)
[2024-03-24] MEDS: Baclofen 10 MG TAB PO PRN (06:14)
[2024-03-24 08:04] VITALS: BP 131/75; TEMP 98.4
== END 2024-03-24 14:21 | disposition home or self-care (01) | DRG 70 ==
LOC: ERS 08:52 → T4-B 12:34
PROVIDERS: ADMIT Internal Medicine; ATTEND Student in an Organized Health Care Education/Training Program
DX: G93.41 Metabolic encephalopathy (principal); E43 Unspecified severe protein-calorie malnutrition; R64 Cachexia; G20.B1 Parkinson's disease with dyskinesia, without mention of fluctuations; N30.90 Cystitis, unspecified without hematuria; D64.9 Anemia, unspecified; E78.00 Pure hypercholesterolemia, unspecified; Z68.20 Body mass index [BMI] 20.0-20.9, adult; Z90.79 Acquired absence of other genital organ(s); Z98.890 Other specified postprocedural states; Z83.438 Family history of other disorder of lipoprotein metabolism and other lipidemia; Z82.0 Family history of epilepsy and other diseases of the nervous system; Z88.1 Allergy status to other antibiotic agents; Z91.041 Radiographic dye allergy status; Z88.5 Allergy status to narcotic agent; Z88.8 Allergy status to other drugs, medicaments and biological substances; Z91.048 Other nonmedicinal substance allergy status; Z83.3 Family history of diabetes mellitus; Z86.61 Personal history of infections of the central nervous system
CPT/HCPCS: 36415; 51701; 70450; 71045; 80048; 80053; 80306; 80307; 81001; 82805; 83605; 83735; 84484; 85025; 87040; 87086; 95700; 95711; 95957; 96372; 96374; 96375; J0696; J2060; J2185; J3360; J7120